=== PATIENT | male | born 1935 | race Caucasian/White ===

== ENCOUNTER → 2020-01-06 09:50 | Outpatient (BNVA) | payer MEDICARE, OTHER, SELFPAY | PROVIDERS: PCP Internal Medicine; Referring Provider Internal Medicine; Visit Provider Hospitalist | DX: J44.9 Chronic obstructive pulmonary disease, unspecified (principal); R91.8 Other nonspecific abnormal finding of lung field; Z85.118 Personal history of other malignant neoplasm of bronchus and lung; Z87.891 Personal history of nicotine dependence | CPT/HCPCS: 99214 ==

== ENCOUNTER → 2020-02-17 15:20 | Outpatient (BNVA) | payer MEDICARE, OTHER, SELFPAY | PROVIDERS: PCP Internal Medicine; Visit Provider Surgery Vascular Surgery | DX: I65.29 Occlusion and stenosis of unspecified carotid artery (principal) | CPT/HCPCS: 99202 ==

== ENCOUNTER 2020-04-26 09:42 | Outpatient (REF) | payer MEDICARE, OTHER, SELFPAY ==
--- NOTE | 2020-04-26 09:47 | US_ITS ---
EXAMINATION: US EXTRACRANIAL CAROTID DUPLEX, BILATERAL CLINICAL INFORMATION: Carotid artery stenosis. History of coronary artery bypass and atrial fibrillation. COMPARISON: None TECHNIQUE: Real-time ultrasound and Doppler techniques (integrating B-mode 2-D vascular images, Doppler spectral analysis and color-flow Doppler imaging) were utilized to interrogate the extracranial carotid arteries, the vertebral arteries and proximal subclavian arteries bilaterally. The degree of stenosis is determined by criteria similar to NASCET. FINDINGS: Right Side: 1. There is mild atherosclerotic plaque seen in the bifurcation/proximal ICA region. 2. The common carotid artery PSV proximally is 71 cm/s and distally 61 cm/s. 3. The proximal internal carotid artery velocities are 77 cm/s systolic and 21 cm/s diastolic. 4. The proximal external carotid artery PSV is 163 cm/s. 5. The vertebral artery shows antegrade flow. 6. The subclavian artery waveforms are normal. Left Side: 1. There is mild atherosclerotic plaque seen in the bifurcation/proximal ICA region. 2. The common carotid artery PSV proximally is 103 cm/s and distally 75 cm/s. 3. The proximal internal carotid artery velocities are 56 cm/s systolic and 14 cm/s diastolic. 4. The proximal external carotid artery PSV is 97 cm/s. 5. The vertebral artery shows antegrade flow. 6. The subclavian artery waveforms are normal. US/US carotid duplex BI IMPRESSION: 1. RIGHT: Minimal, non-hemodynamically significant stenosis of the proximal right internal carotid artery corresponding to a 0-49% stenosis by velocity criteria. 2. LEFT: Minimal, non-hemodynamically significant stenosis of the proximal left internal carotid artery corresponding to a 0-49% stenosis by velocity criteria.
== END 2020-04-26 09:43 | disposition home or self-care (01) ==
LOC: HO.US 09:42
PROVIDERS: Visit Provider Surgery Vascular Surgery
DX: I65.23 Occlusion and stenosis of bilateral carotid arteries (principal)
CPT/HCPCS: 93880

== ENCOUNTER → 2020-05-13 09:35 | Outpatient (BNVA) | payer MEDICARE, OTHER, SELFPAY | PROVIDERS: PCP Internal Medicine; Visit Provider Surgery Vascular Surgery | DX: I65.23 Occlusion and stenosis of bilateral carotid arteries (principal) | CPT/HCPCS: 99212 ==

== ENCOUNTER → 2020-09-15 09:08 | Outpatient (BNVA) | payer MEDICARE, OTHER, SELFPAY | PROVIDERS: PCP Internal Medicine; Visit Provider Hospitalist | DX: R91.8 Other nonspecific abnormal finding of lung field (principal); J43.2 Centrilobular emphysema; J94.8 Other specified pleural conditions; R63.4 Abnormal weight loss; F17.200 Nicotine dependence, unspecified, uncomplicated; Z68.28 Body mass index [BMI] 28.0-28.9, adult; Z85.118 Personal history of other malignant neoplasm of bronchus and lung; Z88.5 Allergy status to narcotic agent; Z79.51 Long term (current) use of inhaled steroids; Z79.899 Other long term (current) drug therapy | CPT/HCPCS: 99212 ==

== ENCOUNTER → 2021-09-14 09:26 | Outpatient (BNVA) | payer MEDICARE, OTHER, SELFPAY | PROVIDERS: PCP Internal Medicine; Visit Provider Hospitalist | DX: R91.8 Other nonspecific abnormal finding of lung field (principal); J43.2 Centrilobular emphysema; I27.20 Pulmonary hypertension, unspecified | CPT/HCPCS: 99212 ==

== ENCOUNTER 2023-02-14 09:21 | Outpatient (AMB) | payer MEDICARE, OTHER, SELFPAY ==
--- NOTE | 2023-02-14 09:30 | A.OFFVIS_ITS ---
Intake Vital Signs 02/14/23 09:31 Height 5 ft 7 in Weight 173 lb 1.006 oz BMI 27.1 BP 132/60 Blood Pressure Location Lt brachial Position Sitting Pulse 67 Pulse Source Pulse Oximeter Pulse Oximetry (%) 98 Oxygen Delivery Method Room Air Intake Visit Reasons: COPD follow-up Literacy Teacher Required: No Allergies oxycodone [From OxyContin] Allergy (Mild, Verified 02/14/23 09:33) Sweat HPI HPI Comments History of Present Illness Details The patient is an 87-year-old gentleman with a known history of lung cancer and pulmonary nodules. Overall he has been doing well from a respiratory status. He has not use any inhalers. He has not had any respiratory issues. The last time he use the nebulizer was back in the winter when he had a cold developed a COPD exacerbation. We did look at the CT scan of the chest from [facility] demonstrating postoperative changes in addition to some calcifications of the pleural lining suggesting asbestos. He also had numerous pulmonary nodules that were subcentimeter in size and 1 on the left hemithorax which was subsolid in Nature. unfortunately, Unfortunately none of these nodules were doumened on the report. I will request patient undergo a CT scan of the chest 18 months from his prior to follow-up with pulmonary nodules and also based on the fact that he had lung cancer. 09/15/2020 the patient is here for a pulmonary follow-up visit. Overall the patient has been doing well. He continues to play golf couple times a week. Denies any significant shortness of breath or cough. He has had some weight loss which he feels is more intentional. His appetite is too good. He did have a repeat CT scan of the chest back in July 2020. No significant changes on the pulmonary nodule. Does have evidence of COPD in addition to asbestos. At this point the patient does not need any respiratory therapy. Will plan to follow-up with a CT scan in 12-18 months. 09/14/2021 the patient is here for pulmonary follow-up visit. Overall he is doing well. He continues to play golf few times a week. Denies any significant shortness of breath. He does gets a cough intermittently. Also noted some lower extremity edema. But overall not too bad. He did have a repeat CT scan of the chest July 2021 which we personally reviewed together. Appears that his pulmonary nodules have not significantly changed. Patient also has asbestos related lung disease. Also not significant change. The patient denies any chest discomfort. At this point the nodules have been compared to previous CT scans including 1 several years back in no significant changes. Therefore, we talked about the possibility of stopping the serial CT scans based on the fact that his nodules have been stable. Will follow-up in a year's time at that point will decide how to proceed with further imaging. With the history of asbestos disease the concern is the possibility of developing mesothelioma. If the patient develops any chest pains or any other concerning symptoms he is to call for an earlier evaluation. also to note, patient did have some dilations of the pulmonary artery suggesting some degree of pulmonary hypertension. This could be secondary. he is currently on diuretics. I did encourage him to continue diuresis as tolerated. 02/14/2023 the patient is here for pulmo nary follow-up visit. The patient overall has been doing well. He continues to stay as active as possible. Denies any worsening cough or shortness of breath or chest pain. He does have a history of the asbestos related lung disease per will have him get a chest x-ray today. The patient also has oxygen. Last CT chest back 05/2021 with stable pulmonary nodules since 2019. +emphysema and post operative changes. [facility] Medical History (Updated 02/17/23 @ 18:07 by Dhaval Simms MD) Asbestos-induced pleural plaque Pulmonary nodules COPD (chronic obstructive pulmonary disease) Family History Father No problems noted. Mother No problems noted. (Updated 09/14/21 @ 09:39 by TOMMY Quarles) Patient Tobacco Use Status: Former Tobacco user Tobacco use type: Cigarette Years Smoked: 40 years Review of Systems Const Denies night sweats and Denies weight loss ENT Denies change in voice, Denies lip swelling, Denies mouth pain, Reports nasal congestion, Reports nasal discharge and Denies tongue swelling Card Denies chest pain Resp Reports cough GI Denies abdominal pain Musc Denies no additional complaints Neuro Denies Neuro-related abnormal movements Psych Denies no additional complaints Santiago/Lymph Denies easy bleeding and Denies lymphadenopathy Aller/Immun Denies lip swelling and Denies tongue swelling Physical Exam Vital Signs: Last Vital Signs Pulse 67 02/14/23 09:31 BP 132/60 02/14/23 09:31 Pulse Ox 98 02/14/23 09:31 Oxygen Delivery Method Room Air 02/14/23 09:31 BMI result Body Mass Index 27.1 Const General: alert Neck Neck: Yes normal visual inspection, Yes full ROM and Yes no lymphadenopathy Chest Chest palpation & inspection: normal inspection of the chest Resp Auscultation: diminished lung sounds Cardio Rate: regular rate Rhythm: regular rhythm Heart sounds: S1 normal heart sound present and S2 normal heart sound present GI Palpation (GI): Soft to palpation and nontender Auscultation: normal bowel sounds Skin General skin exam: rashes and/or lesions noted Assessment & Plan Assessment & Plan (1) Pulmonary nodules: Code(s): R91.8 - Other nonspecific abnormal finding of lung field (2) COPD (chronic obstructive pulmonary disease): Code(s): J44.9 - Chronic obstructive pulmonary disease, unspecified Qualifiers: COPD type: emphysema Emphysema type: centrilobular Qualified Code(s): J43.2 - Centrilobular emphysema (3) Pulmonary hypertension: Comment: likely secondary. At this point not significantly symptomatic. If any worsening shortness of breath then we would benefit additional imaging studies. Code(s): I27.20 - Pulmonary hypertension, unspecified (4) Asbestos-induced pleural plaque: Code(s): J92.0 - Pleural plaque with presence of asbestos Plan TORIBIO as needed Diuresis as tolerated CXR, if abnormal consider CT chest Follow-up in 1 year Orders: Orders XR chest 2V 02/14/23 R91.8 - Other nonspecific abnormal finding of lung field Coding Level of Care Code Est Pt Level 4 (21434) Diagnoses Pulmonary nodules R91.8 Centrilobular emphysema J43.2 COPD type: emphysema Emphysema type: centrilobular Pulmonary hypertension I27.20 Asbestos-induced pleural plaque J92.0 Time Spent (min) 16
[2023-02-14 09:31] VITALS: BP 132/60; PULSE 67; O2SAT 98; BMI 27.1
== END 2023-02-14 09:47 | disposition home or self-care (01) ==
PROVIDERS: PCP Internal Medicine; Visit Provider Hospitalist
DX: R91.8 Other nonspecific abnormal finding of lung field (principal); J43.2 Centrilobular emphysema; I27.20 Pulmonary hypertension, unspecified; J92.0 Pleural plaque with presence of asbestos
CPT/HCPCS: 99214

== ENCOUNTER 2023-02-14 09:21 | Outpatient (REF) | payer MEDICARE, OTHER, SELFPAY ==
--- NOTE | ~2023-02-14 | XR_ITS ---
EXAMINATION: XR CHEST CLINICAL INFORMATION: Other nonspecific abnormal findings of lung robins COMPARISON: Chest radiograph from 12/13/2014 (report only) TECHNIQUE: 2 views of the chest were obtained. FINDINGS: Chronic appearing interstitial lung markings. Slight prominence of pulmonary vasculature. Trace right-sided pleural effusion versus scarring. Bibasilar atelectasis. Biapical pleural parenchymal scarring. No pneumothorax. Trachea is midline. Sternotomy wires and surgical clips. Left single lead pacer terminating in the right ventricle. Cardiac mediastinal silhouette is not enlarged. Aorta demonstrates tortuosity with atherosclerotic calcifications. Osteopenia. Dextrocurvature of the mid to lower thoracic spine with multilevel degenerative changes. Anterior wedge shaped compression deformity of a lower thoracic vertebral body, chronicity indeterminate. Correlation with point tenderness. Right humeral prosthesis, grossly intact. Soft tissues are unremarkable. XR/XR chest 2V IMPRESSION: 1. Chronic appearing interstitial lung markings. 2. Slight prominence of pulmonary vasculature. 3. Trace right-sided pleural effusion versus scarring. 4. Bibasilar atelectasis. 5. Biapical pleural parenchymal scarring. 6. Osteopenia. Anterior wedge shaped compression deformity of a lower thoracic vertebral body, chronicity indeterminate. Correlation with point tenderness.
== END 2023-02-14 09:22 | disposition home or self-care (01) ==
LOC: HO.XRAY 09:21
PROVIDERS: PCP Internal Medicine; Visit Provider Hospitalist
DX: R91.8 Other nonspecific abnormal finding of lung field (principal); J43.2 Centrilobular emphysema; I27.20 Pulmonary hypertension, unspecified; J92.0 Pleural plaque with presence of asbestos
CPT/HCPCS: 71046; 99212

== ENCOUNTER 2023-10-05 09:53 | Outpatient (AMB) | payer MEDICARE, OTHER, SELFPAY ==
[2023-10-05 10:03] VITALS: PULSE 81; O2SAT 99; BMI 25.4
--- NOTE | 2023-10-05 10:03 | MHC.OFFVIS ---
Vital Signs 10/05/23 10:03 Height 5 ft 7 in Weight 162 lb BMI 25.4 Pulse 81 Pulse Source Pulse Oximeter Pulse Oximetry (%) 99 Oxygen Delivery Method Room Air Intake Visit Reasons: COPD follow-up Reproduction Machine Loader Required: No Allergies oxycodone [From OxyContin] Allergy (Mild, Verified 10/05/23 10:04) Sweat HPI Comments Details: The patient is an 88-year-old gentleman with a known history of lung cancer and pulmonary nodules. Overall he has been doing well from a respiratory status. He has not use any inhalers. He has not had any respiratory issues. The last time he use the nebulizer was back in the winter when he had a cold developed a COPD exacerbation. We did look at the CT scan of the chest from [facility] demonstrating postoperative changes in addition to some calcifications of the pleural lining suggesting asbestos. He also had numerous pulmonary nodules that were subcentimeter in size and 1 on the left hemithorax which was subsolid in Nature. unfortunately, Unfortunately none of these nodules were doumened on the report. I will request patient undergo a CT scan of the chest 18 months from his prior to follow-up with pulmonary nodules and also based on the fact that he had lung cancer. 09/15/2020 the patient is here for a pulmonary follow-up visit. Overall the patient has been doing well. He continues to play golf couple times a week. Denies any significant shortness of breath or cough. He has had some weight loss which he feels is more intentional. His appetite is too good. He did have a repeat CT scan of the chest back in July 2020. No significant changes on the pulmonary nodule. Does have evidence of COPD in addition to asbestos. At this point the patient does not need any respiratory therapy. Will plan to follow-up with a CT scan in 12-18 months. 09/14/2021 the patient is here for pulmonary follow-up visit. Overall he is doing well. He continues to play golf few times a week. Denies any significant shortness of breath. He does gets a cough intermittently. Also noted some lower extremity edema. But overall not too bad. He did have a repeat CT scan of the chest July 2021 which we personally reviewed together. Appears that his pulmonary nodules have not significantly changed. Patient also has asbestos related lung disease. Also not significant change. The patient denies any chest discomfort. At this point the nodules have been compared to previous CT scans including 1 several years back in no significant changes. Therefore, we talked about the possibility of stopping the serial CT scans based on the fact that his nodules have been stable. Will follow-up in a year's time at that point will decide how to proceed with further imaging. With the history of asbestos disease the concern is the possibility of developing mesothelioma. If the patient develops any chest pains or any other concerning symptoms he is to call for an earlier evaluation. also to note, patient did have some dilations of the pulmonary artery suggesting some degree of pulmonary hypertension. This could be secondary. he is currently on diuretics. I did encourage him to continue diuresis as tolerated. 02/14/2023 the patient is here for pulmonary follow-up visit. The patient overall has been doing well. He continues to stay as active as possible. Denies any worsening cough or shortness of breath or chest pain. He does have a history of the asbestos related lung disease per will have him get a chest x-ray today. The patient also has oxygen. Last CT chest back 05/2021 with stable pulmonary nodules since 2019. +emphysema and post operative changes. 10/05/2023 the patient is here for pulmonary follow-up visit. Overall he is doing fairly well. The patient denies any shortness of breath. Denies any significant coughing. Sometimes she does have some left-sided chest discomfort on the side which is usually reproducible. Typically he knows notices when he lays on that side. Is not not pain for him to want any medications for it though. We did look at his last chest x-ray back in 02/12/2023 were did not have any evidence of any acute disease. Will go ahead and request a repeat chest x-ray at this time. If any changes we can also request a CT scan but at this point the patient clinically is doing well. He does have history asbestos related lung disease due to the fact that he was in the [place]. [facility] Medical History (Updated 02/17/23 @ 18:07 by Dhaval Simms MD) Asbestos-induced pleural plaque Pulmonary nodules COPD (chronic obstructive pulmonary disease) Family History Father No problems noted. Mother No problems noted. Social History (Updated 09/14/21 @ 09:39 by TOMMY Quarles) Patient Tobacco Use Status: Former Tobacco user Tobacco use type: Cigarette Years Smoked: 40 years Review of Systems Const Denies night sweats and Denies weight loss ENT Denies change in voice, Denies lip swelling, Denies mouth pain, Reports nasal congestion, Reports nasal discharge and Denies tongue swelling Card Denies chest pain Resp Reports cough GI Denies abdominal pain Musc Denies no additional complaints Neuro Denies Neuro-related abnormal movements Psych Denies no additional complaints Santiago/Lymph Denies easy bleeding and Denies lymphadenopathy Aller/Immun Denies lip swelling and Denies tongue swelling Physical Exam Vital Signs: Last Vital Signs Pulse 81 10/05/23 10:03 Pulse Ox 99 10/05/23 10:03 Oxygen Delivery Method Room Air 10/05/23 10:03 BMI result Body Mass Index 25.4 Const General: alert Neck Neck: Yes normal visual inspection, Yes full ROM and Yes no lymphadenopathy Chest Chest palpation & inspection: normal inspection of the chest Resp Auscultation: diminished lung sounds Cardio Rate: regular rate Rhythm: regular rhythm Heart sounds: S1 normal heart sound present and S2 normal heart sound present GI Palpation (GI): Soft to palpation and nontender Auscultation: normal bowel sounds Skin General skin exam: rashes and/or lesions noted Assessment & Plan Assessment & Plan (1) Pulmonary nodules: Code(s): R91.8 - Other nonspecific abnormal finding of lung field Category: Medical (2) COPD (chronic obstructive pulmonary disease): Code(s): J44.9 - Chronic obstructive pulmonary disease, unspecified Category: Medical Qualifiers: COPD type: emphysema Emphysema type: centrilobular Qualified Code(s): J43.2 - Centrilobular emphysema (3) Pulmonary hypertension: Comment: likely secondary. At this point not significantly symptomatic. If any worsening shortness of breath then we would benefit additional imaging studies. Code(s): I27.20 - Pulmonary hypertension, unspecified Category: Medical (4) Asbestos-induced pleural plaque: Code(s): J92.0 - Pleural plaque with presence of asbestos Category: Medical Plan TORIBIO as needed Diuresis as tolerated CXR, if abnormal consider CT chest Follow-up in 1 year Orders: Orders XR chest 2V 10/05/23 J92.0 - Pleural plaque with presence of asbestos Coding Level of Care Code Est Pt Level 4 (93657) Diagnoses Pulmonary nodules R91.8 Centrilobular emphysema J43.2 COPD type: emphysema Emphysema type: centrilobular Pulmonary hypertension I27.20 Asbestos-induced pleural plaque J92.0 Time Spent (min) 16
== END 2023-10-05 10:28 | disposition home or self-care (01) ==
PROVIDERS: PCP Internal Medicine; Visit Provider Hospitalist
DX: R91.8 Other nonspecific abnormal finding of lung field (principal); J43.2 Centrilobular emphysema; I27.20 Pulmonary hypertension, unspecified; J92.0 Pleural plaque with presence of asbestos
CPT/HCPCS: 99214

== ENCOUNTER 2023-10-05 09:53 | Outpatient (REF) | payer MEDICARE, OTHER, SELFPAY ==
--- NOTE | ~2023-10-05 | XR_ITS ---
EXAMINATION: XR CHEST CLINICAL INFORMATION: Pleural plaque with presence of asbestos. COMPARISON: 02/14/2023 TECHNIQUE: 2 views of the chest were obtained. FINDINGS: Redemonstration of right total shoulder arthroplasty with widening of the acromioclavicular joint. Degenerative changes in the thoracic spine with dextroscoliosis. Redemonstration of anterior wedge compression deformity of a lower thoracic vertebral body. Redemonstration of right rib deformity characteristic of prior trauma/surgery. Diffuse demineralization. Sternotomy wires and surgical clips with postcardiac surgery changes and stent redemonstrated. Cardiac silhouette enlarged. Pacer with lead overlying right ventricle. Similar appearance of mild diffuse interstitial opacities. Bibasilar linear opacities appear similar, likely subsegmental atelectasis/scar. Stable bilateral costophrenic angle blunting may represent pleural thickening versus trace pleural effusions. XR/XR chest 2V IMPRESSION: Similar appearance of mild diffuse interstitial opacities. Bibasilar linear opacities appear similar, likely subsegmental atelectasis/scar. Stable bilateral costophrenic angle blunting may represent pleural thickening versus trace pleural effusions.
== END 2023-10-05 09:54 | disposition home or self-care (01) ==
LOC: HO.XRAY 09:53
PROVIDERS: PCP Internal Medicine; Visit Provider Hospitalist
DX: J92.0 Pleural plaque with presence of asbestos (principal); R91.8 Other nonspecific abnormal finding of lung field; I27.20 Pulmonary hypertension, unspecified
CPT/HCPCS: 71046; 99212

== ENCOUNTER 2024-10-03 13:01 | Outpatient (AMB) | payer MEDICARE, OTHER, SELFPAY ==
[2024-10-03 13:04] VITALS: BP 124/62; PULSE 70; O2SAT 98; BMI 24.5
--- NOTE | 2024-10-03 13:04 | MHC.OFFVIS ---
Vital Signs 10/03/24 13:04 Height 5 ft 7 in Weight 156 lb 8.451 oz BMI 24.5 BP 124/62 Blood Pressure Location Lt brachial Position Sitting Pulse 70 Pulse Source Pulse Oximeter Pulse Oximetry (%) 98 Oxygen Delivery Method Room Air Intake Visit Reasons: COPD Turbine Inspector Required: No Accompanied by: Self / Same As Patient Allergies oxycodone (From OxyContin) Allergy (Mild, Verified 10/03/24 13:09) Sweat HPI Comments Details: The patient is an 89-year-old gentleman with a known history of lung cancer and pulmonary nodules. Overall he has been doing well from a respiratory status. He has not use any inhalers. He has not had any respiratory issues. The last time he use the nebulizer was back in the winter when he had a cold developed a COPD exacerbation. We did look at the CT scan of the chest from [facility] demonstrating postoperative changes in addition to some calcifications of the pleural lining suggesting asbestos. He also had numerous pulmonary nodules that were subcentimeter in size and 1 on the left hemithorax which was subsolid in Nature. unfortunately, Unfortunately none of these nodules were doumened on the report. I will request patient undergo a CT scan of the chest 18 months from his prior to follow-up with pulmonary nodules and also based on the fact that he had lung cancer. 09/15/2020 the patient is here for a pulmonary follow-up visit. Overall the patient has been doing well. He continues to play golf couple times a week. Denies any significant shortness of breath or cough. He has had some weight loss which he feels is more intentional. His appetite is too good. He did have a repeat CT scan of the chest back in July 2020. No significant changes on the pulmonary nodule. Does have evidence of COPD in addition to asbestos. At this point the patient does not need any respiratory therapy. Will plan to follow-up with a CT scan in 12-18 months. 09/14/2021 the patient is here for pulmonary follow-up visit. Overall he is doing well. He continues to play golf few times a week. Denies any significant shortness of breath. He does gets a cough intermittently. Also noted some lower extremity edema. But overall not too bad. He did have a repeat CT scan of the chest July 2021 which we personally reviewed together. Appears that his pulmonary nodules have not significantly changed. Patient also has asbestos related lung disease. Also not significant change. The patient denies any chest discomfort. At this point the nodules have been compared to previous CT scans including 1 several years back in no significant changes. Therefore, we talked about the possibility of stopping the serial CT scans based on the fact that his nodules have been stable. Will follow-up in a year's time at that point will decide how to proceed with further imaging. With the history of asbestos disease the concern is the possibility of developing mesothelioma. If the patient develops any chest pains or any other concerning symptoms he is to call for an earlier evaluation. also to note, patient did have some dilations of the pulmonary artery suggesting some degree of pulmonary hypertension. This could be secondary. he is currently on diuretics. I did encourage him to continue diuresis as tolerated. 02/14/2023 the patient is here for pulmonary follow-up visit. The patient overall has been doing well. He continues to stay as active as possible. Denies any worsening cough or shortness of breath or chest pain. He does have a history of the asbestos related lung disease per will have him get a chest x-ray today. The patient also has oxygen. Last CT chest back 05/2021 with stable pulmonary nodules since 2019. +emphysema and post operative changes. 10/05/2023 the patient is here for pulmonary follow-up visit. Overall he is doing fairly well. The patient denies any shortness of breath. Denies any significant coughing. Sometimes she does have some left-sided chest discomfort on the side which is usually reproducible. Typically he knows notices when he lays on that side. Is not not pain for him to want any medications for it though. We did look at his last chest x-ray back in 02/12/2023 were did not have any evidence of any acute disease. Will go ahead and request a repeat chest x-ray at this time. If any changes we can also request a CT scan but at this point the patient clinically is doing well. He does have history asbestos related lung disease due to the fact that he was in the [place]. 10/03/2024 the patient is here for pulmonary follow-up visit. Overall the patient has been doing okay although complaining significant back pain. Some pleuritic component. He did follow-up with his primary care doctor several months ago he had a chest x-ray that was no acute disease per report of the patient. He denies any cough or chest discomfort per se. The patient also gets pain in the back when he moves around. He does appear to have some visible scoliosis. On previous x-rays that I do visualize myself I do appreciate some kyphoscoliosis. Likely due to age-related changes. The patient does have a history of asbestos. Will go ahead and treat with some prednisone to try to help him with likely some musculoskeletal discomfort. He can do for 5 days. If he does not see any significant improvement he should have a repeat chest x-ray. If the x-ray is not helpful we did talk about repeating the CAT scan. The patient does have significant history of asbestos and that could indeed worsen to more concerning conditions. [facility] Medical History (Updated 02/17/23 @ 18:07 by Dhaval Simms MD) Asbestos-induced pleural plaque Pulmonary nodules COPD (chronic obstructive pulmonary disease) Family History Father No problems noted. Mother No problems noted. Social History Patient Tobacco Use Status: Former Tobacco user Tobacco use type: Cigarette Years Smoked: 40 years Review of Systems Const Denies night sweats and Denies weight loss ENT Denies change in voice, Denies lip swelling, Denies mouth pain, Reports nasal congestion, Reports nasal discharge and Denies tongue swelling Card Denies chest pain Resp Reports cough GI Denies abdominal pain Musc Reports as per HPI and Reports back pain Neuro Denies Neuro-related abnormal movements Psych Denies no additional complaints Santiago/Lymph Denies easy bleeding and Denies lymphadenopathy Aller/Immun Denies lip swelling and Denies tongue swelling Physical Exam Vital Signs: Last Vital Signs Pulse 70 10/03/24 13:04 BP 124/62 10/03/24 13:04 Pulse Ox 98 10/03/24 13:04 Oxygen Delivery Method Room Air 10/03/24 13:04 BMI result Body Mass Index 24.5 Const General: alert Neck Neck: Yes normal visual inspection, Yes full ROM and Yes no lymphadenopathy Chest Chest palpation & inspection: normal inspection of the chest Resp Auscultation: diminished lung sounds Cardio Rate: regular rate Rhythm: regular rhythm Heart sounds: S1 normal heart sound present and S2 normal heart sound present GI Palpation (GI): Soft to palpation and nontender Auscultation: normal bowel sounds Skin General skin exam: rashes and/or lesions noted Assessment & Plan Assessment & Plan (1) Pulmonary nodules: Code(s): R91.8 - Other nonspecific abnormal finding of lung field Category: Medical (2) COPD (chronic obstructive pulmonary disease): Code(s): J44.9 - Chronic obstructive pulmonary disease, unspecified Category: Medical Qualifiers: COPD type: emphysema Emphysema type: centrilobular Qualified Code(s): J43.2 - Centrilobular emphysema (3) Pulmonary hypertension: Comment: likely secondary. At this point not significantly symptomatic. If any worsening shortness of breath then we would benefit additional imaging studies. Code(s): I27.20 - Pulmonary hypertension, unspecified Category: Medical (4) Asbestos-induced pleural plaque: Code(s): J92.0 - Pleural plaque with presence of asbestos Category: Medical Plan TORIBIO as needed prednisone x 5 days CXR, if abnormal consider CT chest Follow-up in 6-12 months Orders: Orders XR chest 2V 10/03/24 J92.0 - Pleural plaque with presence of asbestos Medications: New prednisone Take 2 tabs daily x 5 days, then 1 tablet daily x 5 days 20 mg PO DAILY 5 tabs 0RF 5 days Coding Level of Care Code Est Pt Level 4 (45744) Complex EM visit Add On G2211 Diagnoses Pulmonary nodules R91.8 Centrilobular emphysema J43.2 COPD type: emphysema Emphysema type: centrilobular Pulmonary hypertension I27.20 Asbestos-induced pleural plaque J92.0 Time Spent (min) 16
--- OUTSIDE RECORDS SUMMARY | 2024-10-03 13:05 | XMS_ITS | Clinical Summary ---
Author Organization [facility]. Address [address] [address] Phone Care Team Providers Care Plywood And Veneer Repairer Name Role Phone Kenton Lundy MD Primary Care Provider + [phone] Allergies Active Allergy Reactions Criticality Noted Date Comments Oxycodone Hcl Other (see comments) 05/04/2020 Medications aspirin (ST AVA) 81 MG EC tablet Take 1 tablet by mouth 1 (one) time each day Active atorvastatin (LIPITOR) 80 MG tablet Take 1 tablet by mouth 1 (one) time each day 09/13/2016 Active cholecalciferol (VITAMIN D-3) 25 MCG (1000 UT) capsule Take 1 capsule by mouth 1 (one) time each day Active cycloSPORINE (Restasis) 0.05 % ophthalmic emulsion PUT 1 DROP INTO BOTH EYES TWICE DAILY 09/26/2016 Active Febuxostat (ULORIC) 40 MG tablet Take 1 tablet by mouth 1 (one) time each day 08/08/2016 Active omega-3 (FISH OIL) 1000 MG capsule Take 1 capsule by mouth 1 (one) time each day Active fluticasone (FLONASE) 50 MCG/ACT nasal spray if needed 05/02/2020 Active triamcinolone (KENALOG) 0.1 % cream APPLY TWICE A DAY NEEDED TO BACK 09/29/2020 Active torsemide (DEMADEX) 20 MG tablet Take 20 mg by mouth 1 (one) time each day 08/13/2021 Active Eliquis 2.5 MG tablet Take 2.5 mg by mouth 10/06/2022 Active alendronate (FOSAMAX) 70 MG tablet Take 70 mg by mouth 1 (one) time per week 2022 Active carvedilol (COREG) 6.25 MG tablet Take 1 tablet by mouth in the morning and 1 tablet in the evening. Take with meals. 02/14/2024 Active tamsulosin (FLOMAX) 0.4 MG 24 hr capsule Take 0.4 mg by mouth 1 (one) time each day 04/25/2012 Active Patiromer Sorbitex Calcium 8.4 g pack Take 1 packet by mouth 2 (two) times a week 30 each 3 04/10/2024 6 Active Active Problems Problem Noted Date Diagnosed Date Stage 3a chronic kidney disease 11/18/2023 Asymptomatic coronary heart disease 01/11/2022 11/15/2022 Atrial fibrillation 01/11/2022 11/15/2022 Carcinoma of lung 01/11/2022 11/15/2022 Osteoarthritis 01/11/2022 11/15/2022 Osteoporosis 01/11/2022 11/15/2022 Hypertension 11/07/2020 Proteinuria, not otherwise specified 11/07/2020 Gout, not otherwise specified 11/07/2020 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 Benign prostatic hyperplasia 11/07/2020 History of malignant neoplasm of lung 11/07/2020 History of lung lobectomy 11/07/2020 Arteriosclerosis of coronary artery bypass graft 06/28/2020 Acute nontraumatic kidney injury 05/05/2020 Edema 05/05/2020 Hyperkalemia 05/05/2020 Cyst of kidney 05/05/2020 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 [address] [place] [phone] Harshil Serna MD Stage 3a chronic kidney disease (HCC) (Primary Dx); Proteinuria, not otherwise specified; Hypertensive nephrosclerosis; Hypertension; Hyperkalemia; Gout, not otherwise specified; Edema, not otherwise specified; Congenital anomaly of renal pelvis; Other persistent atrial fibrillation (HCC) 07/09/2024 Orders Only [facility] [address] [place] [address] Harshil Serna MD Hyperkalemia; Stage 3a chronic kidney disease (HCC); Proteinuria, not otherwise specified; Hypertension; History of malignant neoplasm of lung; Other acute kidney failure (HCC) from Last 3 Months Immunizations Immunization Administration Dates Next Due Influenza Split High Dose Pr eservative Free IM 12/19/2019,12/24/2018,01/07/2018 Pneumococcal Conjugate 13-Valent 01/20/2013 Zoster 06/11/2008 Family History Medical History Relation Comments Heart disease Father [place] Hypertension Father Relation Status Comments Father Mother Social History Tobacco Use Types Packs/Day Years Used Date Smoking Tobacco: Former Cigarettes Q uit: 03/26/1989 Smokeless Tobacco: Never Tobacco Cessation:Counseling Given: No Alcohol Use Standard Drinks/Week Comments Yes 0 (1 standard drink = 0.6 oz pure alcohol) Alcoholic Drinks/day: Occasional social drink Sex and Gender Information Value Date Recorded Sex Assigned at Not on file Legal Sex Male 4:46 PM EST Gender Identity Not on file Sexual Orientation Not on file Last Filed Vital Signs Vital Sign Reading Time Taken Comments Blood Pressure 132/80 07/09/2024 9:55 AM EDT Pulse 72 07/09/2024 9:55 AM EDT Temperature - - Respiratory Rate - - Oxygen Saturation 99% 07/09/2024 9:55 AM EDT Inhaled Oxygen Concentration - - Weight 73 kg (161 lb) 07/09/2024 9:55 AM EDT Height 172.7 cm (5' 8 ) 04/10/2024 10:09 AM EST Body Mass Index 24.48 04/10/2024 10:09 AM EST Plan of Treatment Upcoming Encounters Date Type Department Care Team ([facility] st Contact Info) Description 01/12/2025 10:40 AM EDT Office Visit [facility] [address] [phone] Harshil Serna MD [phone] [phone] Health Maintenance Due Date Last Done Comments Pneumococcal Vaccine: 50+ Years (2 of 2 - PPSV23, PCV20, or PCV21) 03/17/2013 01/20/2013 Influenza Vaccine (#1) 2024 0, 12/24/2018, 01/07/2018 Pneumococcal Vaccine: Peds (0 to 5 Years) and At-Risk Patients (6 to 49 Years) Discontinued 01/20/2013 Hepatitis B Vaccine Aged Out No longe r eligible based on patient's age to complete this topic Procedures Procedure Name Priority Date/Time Associated Diagnosis Comments PTH, INTACT Routine 07/07/2024 11:26 AM EDT MAGNESIUM Routine 07/07/2024 11:26 AM EDT PHOSPHATE ( PHOSPHORUS) Routine 07/07/2024 11:26 AM EDT URIC ACID Routine 07/07/2024 11:26 AM EDT VITAMIN D 25 HYDROXY Routine 07/07/2024 11:26 AM EDT PROTEIN / CREATININE RATIO, URINE Routine 07/07/2024 11:26 AM EDT COMPREHENSIVE METABOLIC PANEL Routine 07/07/2024 11:26 AM EDT CBC AND DIFFERENTIAL Routine 07/07/2024 11:26 AM EDT from Last 3 Months Results * (ABNORMAL) Protein, Total, Random Urine w/Creatinine (Protein/Creat Ratio) (07/07/2024 11:26 AM EDT) Creatinine, Ur 23.9 Not Estab. mg/dL [facility] Protein, Ur 6.9 Not Estab. mg/dL [facility] U[facility] Protein/Creati nine Ratio 289(H) 0 - 200 mg/g creat [facility] 07/07/2024 11:2 6 AM EDT 07/07/2024 Harshil Serna MD LAB URINE ORDERABLES Final Re sult [facility] [address] [place] [address] * Vitamin D 25 Hydroxy (07/07/2024 11:26 AM EDT) Vitamin D, 25-OH, Total 48.4 30.0 - 100.0 ng/mL [facility] Comment: Vitamin D deficiency has been defined by the [place] of Medicine and an Endocrine Society practice guideline as a level of serum 25-OH vitamin D less than 20 ng/mL (1,2). The Endocrine Society went on to further define vitamin D insufficiency as a level between 21 and 29 ng/mL (2). 1. IOM ([place] of Medicine). 2010. Dietary reference intakes for calcium and D. [place]: The National Academies Press. 2. Cristino MF, Shalini DARBY, Faisal JEONG, et al. Evaluation, treatment, and prevention of vitamin D deficiency: an Endocrine Society clinical practice guideline. JCEM. 2010; 96(7):1911-30. 07/07/2024 11:2 6 AM EDT 07/07/2024 Harshil Serna MD LAB BLOOD ORDERABLES Final Re sult [facility] [address] [place] [address] * (ABNORMAL) CBC and Differential (07/07/2024 11:26 AM EDT) WBC 6.5 3.4 - 10.8 x10E3/uL [facility] RBC 2.86(L) 4.14 - 5.80 x10E6/uL [facility] Hemoglobin 9.8(L) 13.0 - 17.7 g/dL [facility] Hematocrit 29.3(L) 37.5 - 51.0 % [facility] MCV 102(H) 79 - 97 fL [facility] MCH 34.3(H) 26.6 - 33.0 pg [facility] MCHC 33.4 31.5 - 35.7 g/dL [facility] RDW 12.2 11.6 - 15.4 % [facility] Platelets 165 150 - 450 x10E3/uL [facility] Neutrophils Relative 75 Not Estab. % [facility] Lymphocytes Relative 15 Not Estab. % [facility] Monocytes 7 Not Estab. % [facility] Eosinophils Relative 2 Not Estab. % [facility] Basophils Relative 1 Not Estab. % [facility] Neutrophils Absolute 4.9 1.4 - 7.0 x10E3/uL [facility] Lymphocytes Absolute 1.0 0.7 - 3.1 x10E3/uL [facility] Monocytes Absolute 0.5 0.1 - 0.9 x10E3/uL [facility] Eosinophils Absolute 0.1 0.0 - 0.4 x10E3/uL [facility] Basophils Absolute 0.0 0.0 - 0.2 x10E3/uL [facility] Immature Granulocytes 0 Not Estab. % [facility] Immature Grans (Absolute) 0.0 0.0 - 0.1 x10E3/uL [facility] 07/07/2024 11:2 6 AM EDT 07/07/2024 Harshil Serna MD LAB BLOOD ORDERABLES Final Re sult Performing Organization Address City/[facility]/ZIP Co de Phone Number [facility] [address] [place] [address] * Uric Acid (07/07/2024 11:26 AM EDT) Uric Acid 4.0 3.8 - 8.4 mg/dL [facility] Comment:Therapeutic target f or gout patients: <6.0 07/07/2024 11:2 6 AM EDT 07/07/2024 Harshil Serna MD LAB BLOOD ORDERABLES Final Re sult Performing Organization Address [facility] Phone Number [facility] [address] [place] [address] * Phosphorus (07/07/2024 11:26 AM EDT) Phosphorus 3.0 2.8 - 4.1 mg/dL [facility] 07/07/2024 11:2 6 AM EDT 07/07/2024 us Harshil Serna MD LAB BLOOD ORDERABLES Final Re sult Performing Organization Address City/[facility] Co de Phone Number [facility] [address] [place] [address] * (ABNORMAL) PTH, Intact (07/07/2024 11:26 AM EDT) PTH 93(H) 15 - 65 pg/mL [facility] 07/07/2024 11:2 6 AM EDT 07/07/2024 us Harshil Serna MD LAB BLOOD ORDERABLES Final Re sult Performing Organization Address [facility] Co de Phone Number [facility] [address] [place] [address] * Magnesium (07/07/2024 11:26 AM EDT) Pathologist [facility] Magnesium 1.6 1.6 - 2.3 mg/dL [facility] 07/07/2024 11:2 6 AM EDT 07/07/2024 Harshil Serna MD LAB BLOOD ORDERABLES Final Re sult Performing Organization Address [facility] de Phone Number [facility] [address] [place] [address] * (ABNORMAL) Comprehensive Metabolic Panel (07/07/2024 11:26 AM EDT) Pathologist [facility] Glucose 98 70 - 99 mg/dL [facility] BUN 56(H) 8 - 27 mg/dL [facility] Bicarbonate (CO2) 21 20 - 29 mmol/L [facility] Calcium 10.0 8.6 - 10.2 mg/dL [facility] Total Protein 6.1 6.0 - 8.5 g/dL [facility] Albumin 4.0 3.7 - 4.7 g/dL [facility] Globulin 2.1 1.5 - 4.5 g/dL [facility] Total Bilirubin 0.6 0.0 - 1.2 mg/dL [facility] Alkaline Phosphatase 78 44 - 121 IU/L [facility] AST (SGOT) 29 0 - 40 IU/L [facility] ALT (SGPT) 24 0 - 44 IU/L [facility] Creatinine 1.55(H) 0.76 - 1.27 mg/dL [facility] eGFR CKD-EPI CR 2020 43(L) >59 mL/min/1.7 3 [facility] BUN/Creatinine Ratio 36(H) 10 - 24 [facility] Sodium 143 134 - 144 mmol/L [facility] Potassium 4.5 3.5 - 5.2 mmol/L [facility] Chloride 105 96 - 106 mmol/L [facility] 07/07/2024 11:2 6 AM EDT 07/07/2024 us Harshil Serna MD LAB BLOOD ORDERABLES Final Re sult [facility] [address] [place] [address] from Last 3 Months Insurance * Guarantor: Mitchell Mota Account Type Relation to Patient Date of Phone Billing Address Personal/Family Self 1935 [address] [facility] [place] [address] [facility] Medicare Care Teams Plywood And Veneer Repairer Relationship Specialty Start Date End Date Kenton Lundy MD [address] [place] [address] PCP - General 04/05/20
--- OUTSIDE RECORDS SUMMARY | 2024-10-03 13:05 | XMS_ITS | Clinical Summary ---
Author Organization [facility] Address [address] [place] [phone] Care Team Providers Care Intranet Developer Name Role Phone Kenton Lundy MD Primary Care Provider + [phone] Allergies No known active allergies Medications Medication Sig Dispensed Refills Start Date End Date Status torsemide (DEMADEX) 20 MG tablet TAKE 1 TABLET BY MOUTH EVERY DAY 1 08/12/2016 Active ULORIC 40 MG tablet TAKE 1 TABLET BY MOUTH EVERY DAY 0 08/08/2016 Active diltiazem (CARDIZEM CD) 120 MG 24 hr capsule TAKE 1 TABLE BY MOUTH ONCE EVERY DAY. 2 10/22/2016 Active RESTASIS 0.05 % ophthalmic emulsion PUT 1 DROP INTO BOTH EYES TWICE DAILY 4 09/26/2016 Active cephalexin (KEFLEX) 500 MG capsule TAKE 4 CAPS ONE HOUR PRIOR TO PROCEDURE 0 08/29/2016 Active atorvastatin (LIPITOR) tablet 80 mg TAKE 1 TABLET BY MOUTH EVERY DAY 3 09/13/2016 Active ELIQUIS 5 MG TABS tablet TAKE 1 TABLET BY MOUTH IN THE MORNING AND THEN 1 TABLET BY MOUTH IN THE EVENING 1 10/22/2016 Active amoxicillin (AMOXIL) 500 MG capsule TAKE 4 CAPSULES BY MOUTH 30-60 MINUTES BEFORE DENTAL APPOINTMENT 5 08/07/2016 Active doxazosin (CARDURA) 4 MG tablet TAKE 1 TABLET BY MOUTH EVERY DAY 3 10/16/2016 Active alendronate (FOSAMAX) tablet 70 mg Take 70 mg by mouth once a week. 4 04/23/2017 Active erythromycin (ROMYCIN) ophthalmic ointment PLACE ONE QUARTER INCH INTO POCKET OF LOWER LID INTO BOTH EYES AT BEDTIME OR MORE NEEDED 2 03/28/2017 Active Active Problems Problem Noted Date Diagnosed Date Greater trochanteric bursitis of left hip 2017 Chronic pain of both knees 10/27/2016 Family History Medical History Relation Name Comments Cancer Father Cancer Mother Heart disease Mother Relation Name Status Comments Father Mother Social History Tobacco Use Types Packs/Day Years Used Date Smoking Tobacco: Never Assessed Sex and Gender Information Value Date Recorded Sex Assigned at Not on file Gender Identity Not on file Sexual Orientation Not on file Job Start Date Occupation Industry Not on file Not on file Not on file Last Filed Vital Signs Vital Sign Reading Time Taken Comments Blood Pressure - - Pulse - - Temperature - - Respiratory Rate - - Oxygen Saturation - - Inhaled Oxygen Concentration - - Weight 90.7 kg (200 lb) 10/27/2016 9:07 AM EDT Height 175.3 cm (5' 9 ) 10/27/2016 9:07 AM EDT Body Mass Index 29.53 10/27/2016 9:07 AM EDT Plan of Treatment Health Maintenance Due Date Last Done Comments COVID-19 Vaccine (#1) 02/25/1936 Depression Screening 1947 Preventative Health Evaluation 08/25/1953 DTap / Tdap / Td (1 - Tdap) 08/25/1954 Shingrix-Zoster Vaccine (1 of 2) 08/25/1985 Fall Risk Assessment 08/25/2000 Pneumococcal Vaccine (1 of 1 - PCV) 08/25/2000 RSV Adult > 60+ Yrs or Pregn ant (1 - 1-dose 75+ series) 08/25/2010 Influenza Vaccine (#1) 2024 Hepatitis B Vaccines Aged Out No long er eligible based on patient's age to complete this topic RSV Ped < 20 months Aged Out No longe r eligible based on patient's age to complete this topic Care Teams Intranet Developer Relationship Specialty Start Date End Date Kenton Lundy MD PCP - General Internal Medicine 10/18/16
--- OUTSIDE RECORDS SUMMARY | 2024-10-03 13:05 | XMS_ITS | Continuity of Care Document ---
Author Organization [facility] [address] [place] [address] Phone [phone] Care Team Providers Care Exhibit Builder Name Role Phone Kenton Lundy M.D. Care Team Information Recei katie [phone] Problems Active Problems Provider Date Osteoporosis Erickson Henning M.D. Onset: Coronary artery bypass graft Janelle Gauthier Onset: 01/11/2022 Carcinoma of lung Erickson Henning M.D. Onset: 1 Atrial fibrillation Erickson Henning M.D. Onset: 01/11/2022 Asymptomatic coronary heart disease Erickson rodrigues M.D. Onset: 01/11/2022 History of malignant neoplasm of lung Erickson hong M.D. Onset: 01/11/2022 Osteoarthritis Erickson Henning M.D. Onset: Multinodular goiter Erickson Henning M.D. Onset: 05/31/2022 Social History Type Date Description Comments Sex Male Sex Unknown Tobacco Use Start: Unknown Never Smoked Cigarettes ETOH Use Occasionally consumes alcoho l Allergies and adverse reactions Description No Known Drug Allergies Medications Active Medications SIG Qnty Indications Order ing Provider Date Eliquis2.5mg Tablets Take 1 Tablet By Mouth In The Morning And Then 1 Tablet By Mouth In The Evening Erickson Henning M.D. 01/02/2023 Doxazosin [id number] Tablets take one tablet by mouth am 90tabs Erickson Henning M.D. 01/11/2022 [id number] Tablets Take 1 tablet daily Erickson Henning M.D. 01/11/[id number] Take 1 tablet daily Erickson Henning M.D. 01/11/2022 [id number] Tablets 1 tab by mouth every morning Erickson Henning M.D. 01/11/2022 Pen Ovid 5/16 31G X 8 mm Misc 1 pen needle to insulin pen three times a day 300units Erickson Henning M.D. 01/04/2022 Diltiazem HCL ER Coated [id number] Caps ER 24HR Take 1 Capsule By Mouth Every Day Kenton Lundy M.D. Atorvastatin [id number] Tablets Take 1 Tablet By Mouth Every Day Kenton Lundy M.D. Vital Signs Date Vital Result Comment 07/07/2024 9:21am BP Systolic 110 mmHg BP Diastolic 60 mmHg Heart Rate 94 /min Height 68 inches 5'8 Weight 160.38 lb BMI (Body Mass Index) 24.4 kg/m2 Results Test Acquired Date Facility Test Result H/L Range [place] Vitamin D, 25-Hydroxy 08/28/2024 [facility] Vitamin D, 25-Hydroxy 47.5 ng/mL 30.0-100. 0 1 Glomerular Filtration Rate Estimated 08/28/2024 [facility] Creatinine 1.89 mg/dL High 0.76-1.27 eGFR 34 mL/min/1.7 3 Low >59 TSH Rfx on Abnormal to Free T4 08/28/2024 [facility] TSH Rfx on Abnormal to Free T4 1.900 uIU/mL 0.450-4.5 00 Calcium 08/28/2024 [facility] Calcium 9.6 mg/dL 8.6-10.2 Albumin 08/28/2024 [facility] Albumin 3.9 g/dL 3.7-4.7 Calcium 07/07/2024 [facility] Calcium 9.9 mg/dL 8.6-10.2 Vitamin D, 25-Hydroxy 07/07/2024 [facility] Vitamin D, 25-Hydroxy 49.1 ng/mL 30.0-100. 0 2 Albumin 07/07/2024 [facility] Albumin 4.0 g/dL 3.7-4.7 Glomerular Filtration Rate Estimated 07/07/2024 [facility] Creatinine 1.52 mg/dL High 0.76-1.27 eGFR 44 mL/min/1.7 3 Low >59 25Oh Vitamin D 01/02/2023 [facility] 25Oh Vitamin D 57.2 NG/ML High (20-50) 1 Vitamin D deficiency has been defined by the [place] [employer] and an Endocrine Society practice guideline as a level of serum 25-OH vitamin D less than 20 ng/mL (1,2). The Endocrine Society went on to further define vitamin D insufficiency as a level between 21 and 29 ng/mL (2). 1. IOM ([place] of [employer]). 2010. Dietary reference intakes for calcium and D. [place]: The National [employer]. 2. Cristino AGGARWAL, Shalini DARBY, Faisal JEONG, et al. Evaluation, treatment, and prevention of vitamin D deficiency: an Endocrine Society clinical practice guideline. JCEM. 2010; 96(7):1911-30. 2 Vitamin D deficiency has been defined by the [place] [employer] and an Endocrine Society practice guideline as a level of serum 25-OH vitamin D less than 20 ng/mL (1,2). The Endocrine Society went on to further define vitamin D insufficiency as a level between 21 and 29 ng/mL (2). 1. IOM ([place] of [employer]). 2010. Dietary reference intakes for calcium and D. [place]: The National [employer]. 2. Shalini Lynch, Faisal JEONG, et al. Evaluation, treatment, and prevention of vitamin D deficiency: an Endocrine Society clinical practice guideline. JCEM. 2010; 96(7):1911-30. 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
--- OUTSIDE RECORDS SUMMARY | 2024-10-03 13:05 | XMS_ITS | Clinical Summary ---
Author Organization [facility] Address [address] [place] [address] Phone Care Team Providers Care Ambulatory Technologist Name Role Phone Kenton Lundy MD Primary Care Provider [phone] Allergies No known active allergies Medications KRILL OIL ORAL 500 mg 1 (one) time each day. Active apixaban (Eliquis) 2.5 mg tablet TAKE 1 TABLET BY MOUTH TWICE A DAY 4 Active alendronate (FOSAMAX) 70 mg tablet Take 1 Tablet by mouth every 7 days. Active febuxostat (ULORIC) 40 mg tablet Take 1 Tablet by mouth daily. Active atorvastatin (LIPITOR) 80 mg tablet Take 1 tablet (80 mg total) by mouth at bedtime. 3 Active aspirin 81 mg EC tablet Take 81 mg by mouth daily. Active tamsulosin (FLOMAX) 0.4 mg 24 hr capsule Take 1 capsule (0.4 mg total) by mouth 1 (one) time each day with breakfast. Capsules should be taken 30 minutes following the same meal each day. Active carvediloL (COREG) 6.25 mg tablet Take 1 tablet (6.25 mg total) by mouth 2 (two) times a day with meals. 60 each 4 02/14/20 25 Active Veltassa 8.4 gram powder in packet TAKE 1 PACKET BY MOUTH 2 (TWO) TIMES A WEEK Active cholecalciferol (VITAMIN D-3) 10 mcg (400 unit) tablet Take 1 tablet (400 Units total) by mouth 1 (one) time each day. Active torsemide (DEMADEX) 20 mg tablet Take 1 tablet (20 mg total) by mouth 1 (one) time each day. TAKE 1 TABLET 1 (ONE) TIME EACH DAY. AND ADDITIONAL DOSES DIRECTED BY [facility] OR NEPHROLOGY.D 90 tablet 1 Active Active Problems Problem Noted Date Diagnosed Date Heart failure with recovered ejection fraction (HFrecEF) ([facility] V24, CMS/[facility] V28) 08/07/2024 Assessment & Plan (08/07/2024 3:31 PM EDT): Euvolemic on exam today. Continue torsemide 20 mg daily. Recheck renal function and a BNP in 2 weeks. Creatinine will have likely improved. Elevated serum Cr to 1.7 recently likely from attempt at unnecessary diuresis. Does not seem that heart failure diagnostics are correlating clinically. He was instructed to monitor for weight gain, increased KAUR or leg edema and call us. Shortness of breath 08/07/2024 Assessment & Plan (08/07/2024 3:31 PM EDT): Stable shortness of breath in the setting of COPD. No overt CHF or volume overload Orders: ECG 12 lead Basic metabolic panel; Future B-type natriuretic peptide; Future Magnesium; Future Atherosclerosis of CABG w/o angina pectoris 07/2020 Assessment & Plan (06/06/2024 5:08 PM EDT): Remote history of coronary bypass loss of graft to the right PDA with no anginal symptoms at this time. Restart modification in place. Patient with no anginal symptoms Assessment & Plan (02/27/2024 12:59 PM EST): Patient has coronary artery disease s/p CABG. The bypass included a DAVIS graft to the LAD vein graft to the obtuse marginal and vein graft to the right PDA. In 2012 the patient underwent repeat diagnostic catheterization the vein graft to the right PDA was occluded at the origin of the aorta. There is a 40% stenosis in the graft to the obtuse marginal and the DAVIS graft was patent. Patient denies any overt anginal symptoms. He does have some inverted T waves in inferior leads. Last ischemic workup showed mild hodan-infarct ischemia. In light of him being asymptomatic I will defer any repeat stress testing at this time. Echocardiogram was completed since his last office visit showing stable cardiac function with an LVEF of 40 to 45%. He will continue on cardioprotective medical therapy with aspirin and statin. I have added beta cierra today. I have reviewed with the patient the importance of a heart healthy lifestyle which includes eating a low-fat low-salt diet, getting regular exercise, maintaining a healthy weight, not smoking, and following up with routine medical care. Assessment & Plan (02/14/2024 11:32 AM EST): Patient has coronary artery disease s/p CABG. The bypass included a DAVIS graft to the LAD vein graft to the obtuse marginal and vein graft to the right PDA. In 2012 the patient underwent repeat diagnostic catheterization the vein graft to the right PDA was occluded at the origin of the aorta. There is a 40% stenosis in the graft to the obtuse marginal and the DAVIS graft was patent. Patient denies any overt anginal symptoms. He does have some inverted T waves in inferior leads. Last ischemic workup showed mild hodan-infarct ischemia. In light of him being asymptomatic I will defer any repeat stress testing until his next office visit. I have ordered an echocardiogram to reassess his cardiac function. He will continue on cardioprotective medical therapy with aspirin and statin. I have added beta cierra today. I have reviewed with the patient the importance of a heart healthy lifestyle which includes eating a low-fat low-salt diet, getting regular exercise, maintaining a healthy weight, not smoking, and following up with routine medical care. Hyperlipidemia 06/28/2020 Assessment & Plan (02/27/2024 12:59 PM EST): Patient has history of hyperlipidemia and coronary artery disease. He is on atorvastatin 80 mg once a day. Assessment & Plan (02/14/2024 11:32 AM EST): Patient has history of hyperlipidemia and coronary artery disease. He is on atorvastatin 80 mg once a day. Ischemic cardiomyopathy 06/28/2020 Assessment & Plan (08/07/2024 3:31 PM EDT): Stable ischemic heart disease. LVEF recovered on recent echo. Continue GDMT including Coreg 6.25 mb bid, high dose atorvastation, ASA 81 mg daily. Has not been placed on ACEi/ARB/ARNI in the past due to renal function and LVEF has improved. Orders: Basic metabolic panel; Future B-type natriuretic peptide; Future Magnesium; Future Assessment & Plan (06/06/2024 5:08 PM EDT): Patient with a moderately reduced left ventricular ejection fraction. GDMT Betablocker: Carvedilol BRUCE INHIBITOR-NIKOLE/ARB/ARNI: None Diuretic: Torsemide ALDOSTERONE ANTIAGONIST: None SGLT2 INHIBITORS: None Use of NIKOLE ARB or Entresto will be difficult given the patient's elevated creatinine of 1.4. Assessment & Plan (02/27/2024 12:59 PM EST): Patient with chronic systolic heart failure. Patient's last LVEF was calculated on his nuclear stress test in 2022 showing LVEF 47%. I do not see that he has had an echocardiogram within the last 3 years. He has ICD in place for prevention of sudden cardiac . He has had some episodes of nonsustained ventricular tachycardia captured on his device in the past. No recent alerts. I will update an echocardiogram. Patient is doing well and tolerating carvedilol as changed during last office visit. He is back on torsemide 20 mg daily. He does not present with any clinical symptoms of heart failure and he appears euvolemic on physical examination. He continues to follow with nephrology. Recently had labs done with his primary care provider and is plan to repeat a basic metabolic panel next week. Assessment & Plan (02/14/2024 11:32 AM EST): Patient with chronic systolic heart failure. Patient's last LVEF was calculated on his nuclear stress test in 2022 showing LVEF 47%. I do not see that he has had an echocardiogram within the last 3 years. He has ICD in place for prevention of sudden cardiac . He has had some episodes of nonsustained ventricular tachycardia captured on his device in the past. No recent alerts. I will update an echocardiogram. I have also reviewed his medications today and have made some changes to better align with GDMT. He has been having difficulties with leg edema and weight gain. He has been on diltiazem. I have stopped his diltiazem today and have instead given him carvedilol 6.25 mg twice daily. He is on torsemide 20 mg daily and I have advised him to take torsemide 40 mg daily for the next 5 days. I am being cautious given his chronic renal disease. He does follow with a dispatcher maintenance service. His last creatinine was 1.42. I will repeat a basic metabolic panel in 1 week. Orders: Transthoracic echocardiogram (TTE) complete with PRN contrast, bubble, strain, and 3D order panel; Future Basic metabolic panel; Future Longstanding persistent atri al fibrillation (CMS/HCC V24, CMS/HCC V28) 06/28/2020 Assessment & Plan (08/07/2024 3:31 PM EDT): Rate controlled. Continue Coreg and Eliquis 2.5 mg twice daily which is appropriately dosed for his age and serum Cr. Assessment & Plan (06/06/2024 5:08 PM EDT): Patient with longstanding persistent atrial fibrillation that is moderately rate controlled completely asymptomatic the only reason he is aware of it if he takes his pulse. Peripheral edema caused by diltiazem is no longer present. He is comfortable and satisfied with the quality of life that he has right now. Patient is on HD and creatinine adjusted anticoagulation with Eliquis Orders: ECG 12 lead Assessment & Plan (02/27/2024 12:59 PM EST): Patient has longstanding persistent atrial fibrillation and continues on Eliquis for anticoagulation. He is on appropriate dose 2.5 mg twice daily given his advanced age and chronic renal disease. He denies any bleeding or excessive bruising. Heart rate has been managed on diltiazem however I am switching him to carvedilol today given his leg edema, evidence of heart failure and history of systolic heart failure. Assessment & Plan (02/14/2024 11:32 AM EST): Patient has longstanding persistent atrial fibrillation and continues on Eliquis for anticoagulation. He is on appropriate dose 2.5 mg twice daily given his advanced age and chronic renal disease. He denies any bleeding or excessive bruising. Heart rate has been managed on diltiazem however I am switching him to carvedilol today given his leg edema, evidence of heart failure and history of systolic heart failure. Orders: ECG 12 lead COPD (chronic obstructive pu lmonary disease) (CMS/HCC V24, CMS/HCC V28) 07/21/2018 Pulmonary nodules 05/27/2018 Resolved Problems Problem Noted Date Diagnosed Date Resolved Date Atrial fibrillation (CMS/HCC V24, CMS/HCC V28) 07/27/2023 02/14/2024 Nonallopathic lesion of thoracic region 01/22/2013 02/14/2024 Overview (01/03/2024): not elsewhere classified IMO update Sprain of thoracic region 01/22/2013 Encounters Date Type Department Care Team Description 09/02/2024 Telephone [facility] Cardiology [address] [place] [address] Christina Antony PA Results 08/07/2024 12:30 PM EDT Office Visit [facility] [address] [place] [address] Christina Antony PA Heart failure with recovered ejection fraction (HFrecEF) (CMS/HCC V24, CMS/HCC V28) (Primary Dx); Shortness of breath; Ischemic cardiomyopathy; Longstanding persistent atrial fibrillation (CMS/HCC V24, CMS/HCC V28) 08/07/2024 Telephone [facility] [address] [place] [address] Christina Antony PA 07/31/2024 11:40 AM EDT Ancillary Procedure [facility] [address] [place] [address] 07/31/2024 11:35 AM EDT Ancillary Procedure [facility] [address] [place] [address] 07/22/2024 9:40 AM EDT Ancillary Procedure [facility] [address] [place] [address] 07/15/2024 9:45 AM EDT Ancillary Procedure [facility] [address] [place] [address] 07/08/2024 12:30 PM EDT Ancillary Procedure [facility] [address] [place] [address] 07/08/2024 9:15 AM EDT Ancillary Procedure [facility] [address] [place] [address] 07/07/2024 Telephone [facility] [address] [place] [address] Eric Hampton MD from Last 3 Months Surgical History Surgery Date Site/Laterality Comments COLONOSCOPY 03/26/2012 - 03/25/2013 APPENDECTOMY 03/26/2012 - 03/25/2013 Medical History Medical History Date Comments Anxiety state 2012 Cerebrovascular disease 2012 Chronic ischemic heart disease 2013 Depressive disorder Esophageal reflux Irritable bowel syndrome Malignant neoplasm of breast (CMS/HCC V24, CMS/H CC V28) Malignant neoplasm of colon (CMS/HCC V24, [facility] C V28) Hyperlipidemia, unspecified hyperlipidemia type Essential hypertension Asthma Family History Medical History Relation Name Comments Heart attack Father Relation Name Status Comments Father Social History Tobacco Use Types Packs/Day Years Used Date Smoking Tobacco: Former Cigarettes Smokeless Tobacco: Never Tobacco Cessation:Counseling Given: Not Answered Alcohol Use Standard Drinks/Week Comments Not Currently 0 (1 standard drink = 0.6 oz pur e alcohol) Sex and Gender Information Value Date Recorded Sex Assigned at Not on file Legal Sex Male 12:03 AM EST Gender Identity Not on file Sexual Orientation Not on file Obstetrics History Last Filed Vital Signs Vital Sign Reading Time Taken Comments Blood Pressure 137/76 08/07/2024 12:48 PM EDT Pulse 66 08/07/2024 12:48 PM EDT Temperature - - Respiratory Rate - - Oxygen Saturation 96% 08/07/2024 12:48 PM EDT Inhaled Oxygen Concentration - - Weight 70.8 kg (156 lb) 08/07/2024 12:48 PM EDT Height 170.2 cm (5' 7 ) 08/07/2024 12:48 PM EDT Body Mass Index 24.43 08/07/2024 12:48 PM EDT Plan of Treatment Upcoming Encounters Date Type Department Care Team (Late st Contact Info) Description 12/16/2024 9:10 AM EDT Office Visit [facility] [address] [place] [phone] Sakina Abdul NP [address] [place] [address] [address] [place] [address] 04/14/2025 1:30 PM EST Ancillary Procedure [facility] [address] [place] [address] Health Maintenance Due Date Last Done Comments DTaP,Tdap,and Td Vaccines (1 - Tdap) 08/25/1954 Pneumococcal Vaccine: 50+ Years (2 of 2 - PPSV23) 03/17/2013 01/20/2013 Zoster Vaccines (2 of 2) 08/17/2018 06/22/2018, 05/24 Depression Screening 03/04/2022 Falls Risk Assessment 03/04/2022 Medicare Annual Wellness Visit 03/04/2022 Social Influencers of Health Screening 03/04/2022 COVID-19 Vaccine (8 - Pfizer risk season) 2024 01/01/2024, 12/29/2022, 01/12/2022, Additional history exists Influenza Vaccine (#1) 2024 , 12/08/2022, 01/12/2022, Additional history exists Hypertension/CHF/CAD Annual BMP Blood Test 08/28/2025 08/28/2024, 07/29/2024, 07/07/2024, Additional history exists Cholesterol Screening (Lipid Panel) 02/07/2028 02/06/2023 RSV Immunization Adult Patients Completed 02/22/2023 HIB Vaccines Aged Out No longer eligi ble based on patient's age to complete this topic HPV Vaccines Aged Out No longer eligi ble based on patient's age to complete this topic Hepatitis A Vaccines Aged Out No long er eligible based on patient's age to complete this topic Hepatitis B Vaccines Aged Out No long er eligible based on patient's age to complete this topic IPV Vaccines Aged Out No longer eligi ble based on patient's age to complete this topic MMR Vaccines Aged Out No longer eligi ble based on patient's age to complete this topic Meningococcal ACWY Vaccine Aged Out N o longer eligible based on patient's age to complete this topic Meningococcal B Vaccine Aged Out No l onger eligible based on patient's age to complete this topic RSV Immunization Patients Under 20 months Aged Out No longer eligible based on patient's age to complete this topic Varicella Vaccines Aged Out No longer eligible based on patient's age to complete this topic Medical Devices Implanted Type Area Hhas Device Identifier Shelf Expiration Date Model / Serial / Lot Bsci-Crm [id number] [id number] Implanted:01/24 (Quantity not on file) Cardiac ICD [employer] MGMT D120 / [id number] / Procedures Procedure Name Priority Date/Time Associated Diagnosis Comments MAGNESIUM Routine 08/28/2024 9:06 AM EDT Shortness of breath Ischemic cardiomyopathy B-TYPE NATRIURETIC PEPTIDE Routine 08/28/2024 9:06 AM EDT Shortness of breath Ischemic cardiomyopathy BASIC METABOLIC PANEL Routine 08/28/2024 9:06 AM EDT Shortness of breath Ischemic cardiomyopathy ECG 12-LEAD Routine 08/07/2024 3:39 PM EDT Shortness of breath CARDIAC DEVICE CHECK- REMOTE- MURJ Routine 07/31/2024 11:35 AM EDT CARDIAC DEVICE CHECK- REMOTE- MURJ Routine 07/31/2024 11:33 AM EDT BASIC METABOLIC PANEL Routine 07/29/2024 8:40 AM EDT Ischemic cardiomyopathy CARDIAC DEVICE CHECK- REMOTE- MURJ Routine 07/22/2024 9:38 AM EDT CARDIAC DEVICE CHECK- REMOTE- MURJ Routine 07/15/2024 9:44 AM EDT CARDIAC DEVICE CHECK- REMOTE- MURJ Routine 07/08/2024 12:28 PM EDT CARDIAC DEVICE CHECK- REMOTE- MURJ Routine 07/08/2024 9:10 AM EDT LIPID PANEL Routine 02/06/2023 from Last 3 Months or Most Recently Relevant to Health Maintenance Results * (ABNORMAL) B-type natriuretic peptide (08/28/2024 9:06 AM EDT) B-Type Natriuretic Peptide 254.7(H) 0.0 - 100.0 pg/mL [facility] 1 Comment:[employer] [facility] [facility] XP methodology Blood Venous blood specimen / Unknown 08/28/2024 9:06 AM EDT 08/28/2024 Narrative [facility] 1 - 08/29/2024 7:06 AM EDT Performed at: [facility] [id number] Office Engineer: Roxanna Sheets MD, Phone: [phone] Christina GOLDMAN LAB BLOOD ORDERABLES Final Re sult [facility] 1 * Magnesium (08/28/2024 9:06 AM EDT) Pathologist [facility] Magnesium 2.0 1.6 - 2.3 mg/dL [facility] 1 Blood Venous blood specimen / Unknown 08/28/2024 9:06 AM EDT 08/28/2024 Narrative [facility] 1 - 08/29/2024 2:07 PM EDT Performed at: [facility] [id number] Office Engineer: Roxanna Sheets MD, Phone: [phone] Christina GOLDMAN LAB BLOOD ORDERABLES Final Re sult Performing Organization Address [facility] de Phone Number [facility] 1 * (ABNORMAL) Basic metabolic panel (08/28/2024 9:06 AM EDT) Only the most recent of2 resultswithin the time period is included. Glucose 115(H) 70 - 99 mg/dL [facility] 1 Blood Urea Nitrogen (BUN) 64(H) 8 - 27 mg/dL [facility] 1 Creatinine 1.78(H) 0.76 - 1.27 mg/dL [facility] 1 eGFR 36(L) >59 mL/min/1.7 3 [facility] 1 BUN/Creatinine Ratio 36(H) 10 - 24 [facility] 1 Sodium 142 134 - 144 mmol/L [facility] 1 Potassium 5.0 3.5 - 5.2 mmol/L [facility] 1 Chloride 106 96 - 106 mmol/L [facility] 1 Carbon Dioxide 19(L) 20 - 29 mmol/L [facility] 1 Calcium 9.6 8.6 - 10.2 mg/dL [facility] 1 Blood Venous blood specimen / Unknown 08/28/2024 9:06 AM EDT 08/28/2024 Narrative [facility] 1 - 08/29/2024 1:07 PM EDT Performed at: [address] [place] [id number] Office Engineer: Roxanna Sheets MD, Phone: [phone] Christina GOLDMAN LAB BLOOD ORDERABLES Final Re sult Performing Organization Address [facility]/ZIP Co de Phone Number [facility] 1 * ECG 12 lead (08/07/2024 3:39 PM EDT) Ventricular Rate ECG 66 BPM GEMUSE Atrial Rate 54 BPM GEMUSE QRS Duration 108 ms GEMUSE Q-T Interval 388 ms GEMUSE QTc 406 ms GEMUSE R [place] 36 degrees GEMUSE T [place] 15 degrees GEMUSE ECG Interpretation Atrial fibrillation Inferior-program advocate ior infarct (cited on or before 18-MAY-2000) Abnormal ECG When compared with ECG of 06-JUN-2024 14:07, T wave inversion no longer evident in Inferior leads QT has shortened there is no more aberrant conduction Confirmed by SJ FORD ([id number]) on 09/05/2024 4:26:26 PM GEMUSE 08/07/2024 12:5 0 PM EDT 09/05/2024 4:26 PM EDT Christina GOLDMAN ECG ORDERABLES Edited Result - Final [facility] * Cardiac device check - Remote- MURJ (07/31/2024 11:35 AM EDT) Only the most recent of6 resultswithin the time period is included. Date Time Interrogation Session [id number] CV DEVICE CHECK Type Interrogation Session Remote Device Initiated CV DEVICE CHECK Implantable Pulse Generator Hhas BSX CV DEVICE CHECK Implantable Pulse Generator Type ICD CV DEVICE CHECK Implantable Pulse Generator Model D120 CV DEVICE CHECK Implantable Pulse Generator Serial Number [id number] CV DEVICE CHECK Implantable Pulse Generator Implant Date 20210211 CV DEVICE CHECK Battery Remaining Percentage 100.00 CV DEVICE CHECK Battery Remaining Longevity 150.0 CV DEVICE CHECK Battery Status Beginning of Service CV DEVICE CHECK Capacitor Charge Time 9.800 CV DEVICE CHECK Sergio Statistic RV Percent Paced 2.00 CV DEVICE CHECK Lead Channel Sensing Intrinsic Amplitude 7.300 CV DEVICE CHECK Lead Channel Setting Sensing Sensitivity 0.60 CV DEVICE CHECK Lead Channel Impedance Value 419 CV DEVICE CHECK Lead Channel RV Pacing Threshold Date 2024-07-27 CV DEVICE CHECK Lead Channel Setting Pacing Amplitude 2.500 CV DEVICE CHECK Lead Channel Setting Pacing Pulse Width 0.4 CV DEVICE CHECK Sergio Setting Mode (NBG Code) VVI CV DEVICE CHECK Sergio Setting Lower Rate Limit 40 CV DEVICE CHECK Therapy Statistic Recent Shocks Delivered 0 CV DEVICE CHECK Therapy Statistic Recent Shocks Aborted 0 CV DEVICE CHECK Therapy Statistic Recent ATP Delivered 0 CV DEVICE CHECK Shock Measured Impedance 30 CV DEVICE CHECK Zone Setting Type Category VF CV DEVICE CHECK Rate 200 CV DEVICE CHECK Therapies Burst,21J,31J,41J x 6 CV DEVICE CHECK Zone Setting Status On CV DEVICE CHECK Zone ID 1 CV DEVICE CHECK Zone Setting Type Category VT CV DEVICE CHECK Rate 150 CV DEVICE CHECK Zone Setting Status Monitor CV DEVICE CHECK Zone ID 2 CV DEVICE CHECK Date of Service 2024-10-18 CV DEVICE CHECK Anatomical Region Laterality Modality Device Interroga tion 07/28/2024 1:41 AM EDT Impressions 07/31/2024 11:25 AM EDT HeartLogic Index: Remains Above Recovery Threshold Sent to Triage in 07/07/24 encounter *Heart Logic climbed again to 29 * Heart Logic HF Index remains above recovery threshold of 6 * This will alert weekly until the index is below recovery threshold - Currently the contributing factors are: - S3: _0.87__ - S3/S1 Ratio: 2.31___ - Thoracic Impedance: _44.0__ - Respiratory Rate: _18.5__ - Night Heart Rate: _64__ * Will continue to scan trends and monitor Narrative Procedure Note Ashley Peace, FISHER MUSSEL - 07/31/2024 IMPRESSION: HeartLogic Index: Remains Above Recovery Threshold Sent to Triage in 07/07/24 encounter *Heart Logic climbed again to 29 * Heart Logic HF Index remains above recovery threshold of 6 * This will alert weekly until the index is below recovery threshold - Currently the contributing factors are: - S3: _0.87__ - S3/S1 Ratio: 2.31___ - Thoracic Impedance: _44.0__ - Respiratory Rate: _18.5__ - Night Heart Rate: _64__ * Will continue to scan trends and monitor Ashley Peace NP CV IMPLANTABLE CARDIAC DEVIC E PROCEDURES Final Result * Lipid panel (02/06/2023) LDL/HDL Ratio 2 0 - 4 Triglycerides 93 0 - 150 mg/dL Cholesterol 132 0 - 200 mg/dL HDL 58 >=40 mg/dL LDL Cholesterol 56 0 - 100 mg/dL Blood Venous blood specimen / Unknown Historical Provider LAB BLOOD ORDERABLES Jocelin l Result from Last 3 Months or Most Recently Relevant to Health Maintenance Insurance * Guarantor: Mitchell Mota Account Type Relation to Patient Date of Phone Billing Address Personal/Family Self 1935 [address] [facility] [place] [id number] MEDICARE [facility] Care Teams Ambulatory Technologist Relationship Specialty Start Date End Date Kenton Lundy MD [address] [place] [id number] PCP - General Internal Medicine 02/14/24
== END 2024-10-03 13:30 | disposition home or self-care (01) ==
LOC: HO.HPS 13:02
PROVIDERS: PCP Internal Medicine; Visit Provider Hospitalist
DX: R91.8 Other nonspecific abnormal finding of lung field (principal); J43.2 Centrilobular emphysema; I27.20 Pulmonary hypertension, unspecified; J92.0 Pleural plaque with presence of asbestos
CPT/HCPCS: 99214; G2211

== ENCOUNTER → 2024-10-03 13:01 | Outpatient (BNVA) | payer MEDICARE, OTHER, SELFPAY | PROVIDERS: PCP Internal Medicine; Visit Provider Hospitalist | DX: J43.2 Centrilobular emphysema (principal); R91.8 Other nonspecific abnormal finding of lung field; I27.20 Pulmonary hypertension, unspecified; J92.0 Pleural plaque with presence of asbestos | CPT/HCPCS: 99212 ==